=== PATIENT | female | born 1995 | race Caucasian/White ===

== ENCOUNTER 2019-07-17 22:22 | Emergency (ER) | payer OTHER ==
[~2019-07-17 22:22] MED LIST: Iopamidol 370 76% 100 ML VIAL ONE
[2019-07-17 22:54] LABS: Bilirubin Negative (Negative); Blood, Urine Negative (Negative); Clarity Slightly Cloudy (Clear); Glucose, Urine (Dipstick) Negative (Negative); Leukocyte Negative (Negative); Nitrite Negative (Negative); Protein, Urine (Dipstick) Negative (Neg-Trace); Urobilinogen 0.2 mg/dL (Less than 2)
[2019-07-17 23:03] LABS: BHCG - Serum Negative (NEGATIVE); Pregs Control Background? CLEAR/WHITE (CLR/WHITE); Pregs Control Bar Appear? YES (CONTROL BAR)
[2019-07-17 23:09] LABS: Hemoglobin 13.7 g/dL (12.0-16.0); Mean Corpuscular HGB CONC 33.9 g/dL (32.0-36.0); Mean Corpuscular Hemoglobin 31.8 pg (27.0-31.0); Mean Corpuscular Volume 93.7 fL (78.0-98.0); Red Blood Cell (RBC) Count 4.29 mill/uL (4.20-5.40); White Blood Cell (WBC) Count 14.6 thou/uL (4.8-10.8)
[2019-07-17 23:10] LABS: #Eosinphils 0.2 thou/uL (0.0-0.7); #Lymphocytes 1.9 thou/uL (1.20-3.40); #Monocytes 0.4 thou/uL (0.11-0.59); %Basophils 0.4 % (0.0-1.0); %Eosinophils 1.6 % (0.0-10.0); %Lymphocytes 12.7 % (21.0-51.0); %Monocytes 2.9 % (0.0-10.0); %Neutrophils 82.4 % (42.0-75.0); Mean Platelet Volume 8.2 fL (7.4-10.4); Platelet Count 215 thou/uL (130-400); RBC Distribution Width 10.9 % (11.5-14.5)
[2019-07-17 23:11] LABS: #Basophils 0.1 thou/uL (0.0-0.2)
[2019-07-17 23:17] LABS: ALT (SGPT) 38 U/L (8-55); AST (SGOT) 26 U/L (5-34); Albumin 4.1 g/dL (3.5-5.0); Alkaline Phosphatase 67 U/L (40-110); Anion Gap 15 mmol/L (10-20); BUN (Urea Nitrogen) 12 mg/dL (7.0-18.7); Bilirubin, Total 0.3 mg/dL (0.2-1.2); Calc. Creatinine Clearance 0 mL/min (70-130); Calcium 9.2 mg/dL (7.8-10.44); Carbon Dioxide 26 mmol/L (22-29); Chloride 103 mmol/L (98-107); Estimated GFR-MDRD 82; Globulin 2.8 g/dL (2.4-3.5); Glucose 97 mg/dL (70-105); Potassium 3.7 mmol/L (3.5-5.1); Protein, Total 6.9 g/dL (6.0-8.3); Sodium 140 mmol/L (136-145)
[2019-07-18] MEDS ORDERED: Azithromycin 250 MG TAB ONE (00:12)
[2019-07-18] MEDS ORDERED: cefTRIAXone\\ROCEPHIN 2 GM VIAL ONE (00:12)
--- NOTE | 2019-07-18 07:51 | CT ---
CT ABDOMEN WITH CONTRAST CT PELVIS WITH CONTRAST: DATE: 07/17/2019 HISTORY: 24-year-old female with right lower quadrant and epigastric abdominal pain. Leukocytosis. TECHNIQUE: IV injection of iodinated contrast media: Administered Oral contrast media:Not administered. FINDINGS: Liver: No focal solid mass. Spleen: No splenomegaly.. Pancreas: No mass or surrounding fat stranding.. Adrenals: No mass.. Kidneys: No hydronephrosis or enhancement abnormalities.. Ureters: No dilation. Bladder: No pathology identified. Abdominal aorta: No aneurysm. Small bowel: No dilation. Colon: No adjacent fat stranding. Appendix: 8 mm caliber, upper limits of normal. No adjacent fat stranding.. Free air: None. Free fluid: None. There is a 5 x 4 x 4 cm left adnexal cyst with thin villanueva. Uterus: The fundus has higher density, higher contrast enhancement, relative to the cervix, which has diffusely low density, apparently for enhancement. IMPRESSION: 1) 5 cm left adnexal cyst. 2) No convincing evidence of acute appendicitis. 3) differential enhancement between uterine cervix and uterine fundus, an unusual finding. Exact etio logy uncertain. Possibilities include pelvic inflammatory disease and cervical cancer. Recommend [facility] consultation.
[2019-07-19 22:36] LABS: Chlamydia by PCR Not Detected (NotDetected); GC by PCR Not Detected (NotDetected)
== END 2019-07-18 00:55 | disposition home or self-care (01) ==
LOC: BURERS 22:22
DX: N73.9 Female pelvic inflammatory disease, unspecified (principal)
CPT/HCPCS: 74177; 80053; 81003; 84703; 85025; 86140; 87086; 87491; 87591; 96361; 96365; J0696; Q9967